=== PATIENT | male | born 1995 | race Caucasian/White ===

== ENCOUNTER 2022-06-20 03:45 | Emergency (ER) | payer MEDICAID, OTHER ==
[~2022-06-20] VITALS: Ht 170.2 cm; Wt 85.7 kg
[2022-06-20] MEDS ORDERED: ONDANSETRON 4 MG/2 ML VIAL ONE ×2 (03:57→04:12)
[2022-06-20] MEDS ORDERED: ONDANSETRON 4 MG/2 ML VIAL IV ONE ×2 (04:00→04:15)
[2022-06-20] MEDS ORDERED: IV NORMAL SALINE 1000 ML BAG IV ONE (04:00)
[2022-06-20] MEDS ORDERED: FAMOTIDINE. 20 MG/2 ML VIAL IV ONE ×2 (04:12→04:15)
[2022-06-20 04:13] LABS: HEMATOCRIT 43.8 % (36.7-47.1); MEAN CORPUSCULAR HEMOGLOBIN 30.5 uug (23.8-33.4); PLATELET COUNT (AUTO) 268 K/uL (152-348)
[2022-06-20 04:19] LABS: CARBON DIOXIDE 28 mmol/L (21-32); CHLORIDE 99 mmol/L (98-107); GLUCOSE 112 mg/dL (74-106); POTASSIUM 3.5 mmol/L (3.5-5.1); UREA NITROGEN, BLOOD < 1 mg/dL (7-18)
[2022-06-20 04:24] LABS: ALANINE AMINOTRANSFERASE 38 U/L (16-63); ALKALINE PHOSPHATASE 89 U/L (50-136); ASPARTATE AMINOTRANSFERASE 24 U/L (15-37); BILIRUBIN,DIRECT 0.2 mg/dL (0.0-0.2); LIPASE 221 U/L (73-393); TOTAL PROTEIN, SERUM 8.6 g/dL (6.4-8.2)
[2022-06-20] MEDS ORDERED: IV NORMAL SALINE 500 ML IV ONE (06:30)
[2022-06-20] MEDS ORDERED: MORPHINE SULFATE 4 MG/1 ML DISP.SYRIN IV ONE (06:30)
[2022-06-20] MEDS ORDERED: MORPHINE SULFATE 4 MG/1 ML DISP.SYRIN ONE (06:35)
--- NOTE | 2022-06-20 07:30 | NUR ---
Received patient in bed, resting. Easily arousable. No complaints of distress at the time.
[2022-06-20] MEDS ORDERED: MAG355OR21 PO (08:50)
[2022-06-20] MEDS ORDERED: FAMO20TA8 PO (08:50)
[2022-06-20] MEDS ORDERED: ACET-73 PO (08:50)
--- NOTE | 2022-06-20 09:05 | NUR ---
Patient discharged to home in stable condition. Written and verbal after care instructions given. Patient verbalizes understanding of instructions. Stressed follow up or return to ER for worsening s/s.
[2022-06-20 09:47] VITALS: BP 145/98
== END 2022-06-20 09:05 | disposition home or self-care (01) ==
LOC: ER 03:50
DX: R10.13 Epigastric pain (principal); F10.90 Alcohol use, unspecified, uncomplicated
CPT/HCPCS: 99285; 96374; 96375; 96361; 80076; 80048; 83690; 85025; 36415; 96376; J3490; J2405 ×2; J2270; J7040 ×2

== ENCOUNTER 2022-06-29 16:30 | Emergency (ER) | payer OTHER ==
[~2022-06-29] VITALS: Ht 167.6 cm; Wt 77.1 kg
[~2022-06-29 16:30] MED LIST: ACET-73 PO; FAMO20TA8 PO; MAG355OR21 PO
[2022-06-29] MEDS ORDERED: IV NORMAL SALINE 1000 ML BAG IV ONE (17:15)
[2022-06-29] MEDS ORDERED: diphenhydrAMINE 50 MG/1 ML VIAL IV ONE (17:15)
[2022-06-29] MEDS ORDERED: MAG HYDROX/AL HYDROX/SIMETH 30 ML LIQUID UDC PO ONE (17:15)
[2022-06-29] MEDS ORDERED: LIDOCAINE VISCUS 2% 15 ML UDC MM ONE (17:15)
[2022-06-29] MEDS ORDERED: METOCLOPRAMIDE HCL 10 MG/2 ML VIAL IV ONE (17:15)
[2022-06-29] MEDS ORDERED: FAMOTIDINE. 20 MG/2 ML VIAL IV ONE ×2 (17:15→17:45)
[2022-06-29 17:27] LABS: HEMATOCRIT 44.8 % (36.7-47.1); MEAN CORPUSCULAR HEMOGLOBIN 30.4 uug (23.8-33.4); MEAN CORPUSCULAR VOLUME 91.9 fL (73.0-96.2); PLATELET COUNT (AUTO) 272 K/uL (152-348)
[2022-06-29] MEDS ORDERED: ONDA4TAB5 PO (17:33)
[2022-06-29] MEDS ORDERED: CHLO25CA22 PO (17:33)
[2022-06-29 17:42] LABS: BILIRUBIN,DIRECT 0.1 mg/dL (0.0-0.2); BILIRUBIN,TOTAL 0.3 mg/dL (0.2-1.0); CREATININE 0.9 mg/dL (0.6-1.3); POTASSIUM 3.6 mmol/L (3.5-5.1); TOTAL PROTEIN, SERUM 8.7 g/dL (6.4-8.2)
[2022-06-29] MEDS ORDERED: METOCLOPRAMIDE HCL 10 MG/2 ML VIAL ONE (17:45)
[2022-06-29] MEDS ORDERED: LIDOCAINE VISCUS 2% 15 ML UDC ONE (17:45)
[2022-06-29] MEDS ORDERED: MAG HYDROX/AL HYDROX/SIMETH 30 ML LIQUID UDC ONE (17:45)
[2022-06-29] MEDS ORDERED: FAMO-132 PO (17:58)
--- NOTE | 2022-06-29 18:00 | NUR ---
recieved pt in nad; vss. pt states currently nauseous; no vomiting. Vomiting episodes earlier started this afternoon.
[2022-06-29] MEDS ORDERED: diphenhydrAMINE 50 MG/1 ML VIAL ONE (18:03)
[2022-06-29 19:27] VITALS: BP 156/66
== END 2022-06-29 19:28 | disposition home or self-care (01) ==
LOC: ER 16:30
DX: F10.239 Alcohol dependence with withdrawal, unspecified (principal); K85.90 Acute pancreatitis without necrosis or infection, unspecified; R51.9 Headache, unspecified; Z20.822 Contact with and (suspected) exposure to COVID-19
CPT/HCPCS: 99284; 96374; 71045; 96375; 96361; 80076; 80048; 83690; 85025; 87400; 36415; U0003; C9803; J1200; J3490; J2765; J7040; A4663